=== PATIENT | male | born 1970 | race Caucasian/White ===

== ENCOUNTER 2025-07-08 17:37 | Emergency (ER) | payer BC, SELFPAY ==
[2025-07-08 17:38] VITALS: BP 147/89; PULSE 80; RESP 16; TEMP 36.9; O2SAT 100; BMI 25.2
[2025-07-08 20:38] VITALS: BP 136/60; PULSE 79; RESP 16; TEMP 36.7; O2SAT 98
== END 2025-07-08 20:39 | disposition home or self-care (01) ==
PROVIDERS: Emergency Provider Surgery; Visit Provider Surgery
DX: M25.512 Pain in left shoulder (principal); M19.012 Primary osteoarthritis, left shoulder; F17.210 Nicotine dependence, cigarettes, uncomplicated; M95.8 Other specified acquired deformities of musculoskeletal system
CPT/HCPCS: 73030; 99282